=== PATIENT | male | born 1960 | race Caucasian/White ===

== ENCOUNTER 2018-03-24 18:11 | Emergency (ER) | payer BC ==
[2018-03-24] MEDS: IBUPROFEN 600 MG TAB PO (19:35)
== END 2018-03-24 20:57 | disposition home or self-care (01) ==
LOC: FTE 18:11
DX: M79.641 Pain in right hand (principal); Z79.82 Long term (current) use of aspirin
CPT/HCPCS: 73110; 73110-RT; 73130-RT; 99283-25

== ENCOUNTER 2018-10-14 11:47 | Emergency (ER) | payer BC ==
[2018-10-14] MEDS: KETOROLAC 15 MG INJ IV (12:38)
[2018-10-14] MEDS: SODIUM CHLORIDE 0.9% 1L BAG IV* (12:38)
[2018-10-14] MEDS: ACETAMINOPHEN 325 MG TAB PO (12:38)
[2018-10-14 12:42] LABS: ADD MAN DIFF? NO; BASOPHILS % 0.4 % (0.0-2.0); EOSINOPHILS % 0.1 % (0.0-7.0); HEMATOCRIT 42.7 % (42.0-52.0); HEMOGLOBIN 13.8 g/dl (14.0-18.0); LYMPHOCYTES # 1.5 10^3/ul (0.8-2.9); LYMPHOCYTES % 19.9 % (15.0-51.0); MEAN CORPUSCULAR HEMOGLOBIN 28.5 pg (29.0-33.0); MEAN CORPUSCULAR HGB CONC 32.3 g/dl (32.0-37.0); MEAN CORPUSCULAR VOLUME 88.2 fl (82.0-101.0); MONOCYTES % 12.4 % (0.0-11.0); NEUTROPHIL # 5.1 10^3/ul (1.6-7.5); NEUTROPHILS % 66.9 % (39.0-77.0); PLATELET COUNT 187 10^3/UL (140-415); RED BLOOD COUNT 4.84 10^6/ul (4.70-6.10); RED CELL DISTRIBUTION WIDTH 12.6 % (11.5-14.5)
[2018-10-14 12:42] LABS: WHITE BLOOD COUNT 7.7 10^3/ul (4.8-10.8)
[2018-10-14 13:01] LABS: INR 0.94; PROTIME 12.7 Sec (11.9-14.9)
[2018-10-14 13:02] LABS: PARTIAL THROMBOPLASTIN TIME 27.8 Sec (23.0-35.0)
[2018-10-14 13:06] LABS: ALANINE AMINOTRANSFERASE 26 IU/L (13-69); ALBUMIN 4.5 g/dl (3.3-4.9); ALBUMIN/GLOBULIN RATIO 1.12; ALKALINE PHOSPHATASE 66 IU/L (42-121); ANION GAP 10 (5-13); ASPARTATE AMINO TRANSFERASE 28 IU/L (15-46); BILIRUBIN,INDIRECT 0.9 mg/dl (0-1.1); BILIRUBIN,TOTAL 0.9 mg/dl (0.2-1.3); BLOOD UREA NITROGEN 19 mg/dl (7-20); CALCIUM 9.4 mg/dl (8.4-10.2); CARBON DIOXIDE 27 mmol/L (21-31); CHLORIDE 103 mmol/L (97-110); CREATININE 1.18 mg/dl (0.61-1.24); Estimated GFR > 60 mL/min (>60); GLUCOSE 109 mg/dl (70-220); LIPASE 631 U/L (23-300); POTASSIUM 3.9 mmol/L (3.5-5.1); SODIUM 140 mmol/L (135-144); TOTAL PROTEIN 8.5 g/dl (6.1-8.1)
[2018-10-14 13:18] LABS: TROPONIN-I < 0.012 ng/ml (0.000-0.120)
[2018-10-14] MEDS: OSELTAMIVIR 75 MG CAP PO (13:34)
== END 2018-10-14 14:05 | disposition home or self-care (01) ==
LOC: FTE 11:47
DX: J10.1 Influenza due to other identified influenza virus with other respiratory manifestations (principal); R05 Cough; Z79.82 Long term (current) use of aspirin
CPT/HCPCS: 36415; 71045; 80053; 83605; 83690; 84484; 85025; 85610; 85730; 87400; 93005; 96374; 99285-25

== ENCOUNTER 2019-01-07 05:55 | Day surgery (SDC) | payer BC ==
[2019-01-07] MEDS: SOD CHLORIDE 0.9% 1,000 ML IV (07:00)
[2019-01-07] MEDS ORDERED: CEFAZOLIN 2 GM/50 ML (PMX) 50 ML IVPB (07:00)
[2019-01-07] MEDS ORDERED: ONDANSETRON 4 MG INJ (07:35)
[2019-01-07] MEDS ORDERED: PROPOFOL 20 ML (07:35)
[2019-01-07] MEDS ORDERED: METOCLOPRAMIDE 10 MG INJ (07:35)
[2019-01-07] MEDS ORDERED: MIDAZOLAM 1 MG/ML 2 ML INJ (07:35)
[2019-01-07] MEDS ORDERED: CEFAZOLIN 1 GM INJ (07:35)
[2019-01-07] MEDS ORDERED: ROCURONIUM 50 MG INJ (07:35)
[2019-01-07] MEDS ORDERED: FENTAnyl 50 MCG/ML VIAL (07:50)
[2019-01-07] MEDS ORDERED: hydrALAzine 20 MG INJ IV (08:00)
[2019-01-07] MEDS ORDERED: HYDROmorphONE 1 MG/5 ML IV SYRINGE IV ×3 (08:00)
[2019-01-07] MEDS ORDERED: LABETALOL HCL 20MG INJ IV (08:00)
[2019-01-07] MEDS ORDERED: DIPHENHYDRAMINE 50 MG INJ IV (08:00)
[2019-01-07] MEDS ORDERED: OXYCODONE/ACETAMINOPHEN (5/325) TAB PO ×3 (08:00→09:00)
[2019-01-07] MEDS ORDERED: FENTAnyl 50 MCG/ML VIAL IV ×3 (08:00)
[2019-01-07] MEDS: BACITRACIN/POLYMYXIN 28.35 GM OINT TOP (08:14)
[2019-01-07] MEDS ORDERED: NEOSTIGMINE 3 MG/3 ML SYRINGE (08:39)
[2019-01-07] MEDS ORDERED: GLYCOPYRROLATE 0.4 MG INJ (08:39)
[2019-01-07] MEDS: BUPIVACAINE 0.25%/EPI (SDV) 30 ML INJ (08:57)
[2019-01-07] MEDS ORDERED: IBUPROFEN 600 MG TAB PO (09:00)
[2019-01-07] MEDS ORDERED: KETOROLAC 30 MG INJ IV (09:00)
[2019-01-07] MEDS ORDERED: ONDANSETRON 4 MG INJ IV (09:00)
[2019-01-07] MEDS ORDERED: morphine 2 MG INJ IV (09:00)
[2019-01-07] MEDS: ONDANSETRON 4 MG INJ IV (09:30)
[2019-01-07] MEDS: MEPERIDINE 25 MG INJ IV (09:30)
[2019-01-07] MEDS: OXYCODONE/ACETAMINOPHEN (5/325) TAB PO (10:08)
== END 2019-01-07 10:56 | disposition home or self-care (01) ==
LOC: SDS 05:55
DX: K64.8 Other hemorrhoids (principal); K64.4 Residual hemorrhoidal skin tags; E03.9 Hypothyroidism, unspecified
CPT/HCPCS: 46255; 88304